=== PATIENT | female | born 1950 | race Caucasian/White ===

== ENCOUNTER → 2017-02-16 | Outpatient (CLI) | payer MEDICARE | END | disposition home or self-care (01) | LOC: CFH 14:19 | PROVIDERS: ATTEND Licensed Practical Nurse | DX: Z12.2 Encounter for screening for malignant neoplasm of respiratory organs (principal); I71.2 Thoracic aortic aneurysm, without rupture; F17.210 Nicotine dependence, cigarettes, uncomplicated; I25.10 Atherosclerotic heart disease of native coronary artery without angina pectoris | CPT/HCPCS: G0297 ==

== ENCOUNTER 2020-02-06 14:24 | Day surgery (SDC) | payer MEDICARE ==
[~2020-02-06] VITALS: Ht 160 cm; Wt 67.4 kg
[~2020-02-06 14:24] MED LIST: AMLO-150 PO; ATOR20TA37 PO; CHOL10003 PO; GEMCITABINE HCL BLADIN ONE; LOSA1TAB19 PO; SODIUM CHLORIDE 0.9% BLADIN ONE; VIT1CAPS42 PO
[2020-02-06] MEDS ORDERED: FENTANYL PF 250 MCG/5ML ONE (14:52)
[2020-02-06 14:56] VITALS: BP 162/90
[2020-02-06] MEDS ORDERED: ONDANSETRON 2MG/ML, 2ML IVPush PRN (15:00)
[2020-02-06] MEDS ORDERED: PROMETHAZINE 25 MG/ML, 1ML IVPush PRN (15:00)
[2020-02-06] MEDS ORDERED: FENTANYL PF 100 MCG/2ML IV PRN (15:00)
[2020-02-06] MEDS ORDERED: LACTATED RINGERS 1,000 ML IV SCH (15:00)
[2020-02-06] MEDS ORDERED: CHLORHEXIDINE 15 ML UDC MM ONE (15:00)
[2020-02-06] MEDS ORDERED: hydrALAzine 20 MG/ML, 1ML IV PRN (15:00)
[2020-02-06] MEDS ORDERED: EPHEDRINE 50 MG/ML, 1ML IVPush PRN (15:00)
[2020-02-06] MEDS ORDERED: METHOCARBAMOL 1,000 MG in DEXTROSE 5% 100 ML IV PRN (15:00)
[2020-02-06] MEDS ORDERED: LABETALOL 5MG/ML, 20ML IV PRN (15:00)
[2020-02-06] MEDS ORDERED: HYDROmorphone 1 MG/ML, 1ML INJ IVPush PRN (15:00)
[2020-02-06] MEDS ORDERED: MEPERIDINE/PF 25MG/0.5ML IVPush PRN (15:00)
[2020-02-06] MEDS ORDERED: OXYcodone 5 MG/5 ML ORAL.SOL UDC PO PRN (15:00)
[2020-02-06] MEDS ORDERED: ACETAMINOPHEN 325 MG TABLET PO PRN (15:00)
[2020-02-06] MEDS ORDERED: PROPOFOL 10 MG/ML, 20ML ONE (16:21)
[2020-02-06] MEDS ORDERED: SUCCINYLCHOLINE 20 MG/ML, 10ML ONE (16:21)
[2020-02-06] MEDS ORDERED: PHENYLEPHRINE 10 MG/ML ONE (16:21)
[2020-02-06] MEDS ORDERED: CEFAZOLIN 1,000 MG ONE (16:21)
[2020-02-06] MEDS ORDERED: VASOPRESSIN 20 UNIT/ML, 1ML ONE (16:21)
[2020-02-06] MEDS ORDERED: ONDANSETRON 2MG/ML, 2ML ONE (16:21)
[2020-02-06] MEDS ORDERED: NEOSTIGMINE 1 MG/ML, 10ML ONE (16:21)
[2020-02-06] MEDS ORDERED: ROCURONIUM 10MG/ML,5ML ONE (16:21)
[2020-02-06] MEDS ORDERED: DEXAMETHASONE 4 MG/ML, 1ML ONE (16:21)
== END 2020-02-06 18:40 | disposition home or self-care (01) ==
LOC: OUT 14:24
PROVIDERS: ATTEND Urology
DX: C67.0 Malignant neoplasm of trigone of bladder (principal); I10 Essential (primary) hypertension; E78.5 Hyperlipidemia, unspecified; I71.2 Thoracic aortic aneurysm, without rupture; F17.210 Nicotine dependence, cigarettes, uncomplicated; Z20.828 Contact with and (suspected) exposure to other viral communicable diseases; Z79.899 Other long term (current) drug therapy; Z91.048 Other nonmedicinal substance allergy status; Z80.42 Family history of malignant neoplasm of prostate; Z82.49 Family history of ischemic heart disease and other diseases of the circulatory system
CPT/HCPCS: 36415; 51720; 52234; 80053; 81001; 85025; 85610; 87086; 87635; 88305; 93005; J0330; J0690; J1100; J2370; J2405; J2704; J2710; J3010; J7120; J9201